=== PATIENT | female | born 1945 | race Caucasian/White ===

== ENCOUNTER 2024-10-13 11:47 | Inpatient (IN) | payer MEDICARE, BC ==
[~2024-10-13] VITALS: Ht 160 cm; Wt 64.1 kg
[2024-10-13 12:00] VITALS: TEMP 98; O2SAT 99
[2024-10-13 12:32] LABS: ABG BASE EXCESS 0.9 mmol/L (-2.0-3.0); ABG OXYGEN SATURATION 98.3 % (94.0-98.0); ABG PCO2 46.2 mmHg (32.0-45.0); ABG PH 7.376 (7.350-7.450); ABG PO2 149.6 mmHg (83.0-108.0); ABG TOTAL HEMOGLOBIN 11.2 G/dL (12.0-16.0); COHb 0.3 % (0.5-1.5); MetHb 0.3 % (0.0-1.5); O2Hb 97.7 % (94.0-97.0); SITE, ABG LEFT RADIAL
[2024-10-13 12:43] LABS: BASOPHILS % (AUTO) 0.2 % (0.0-2.0); EOSINOPHILS % (AUTO) 0.2 % (0.0-6.0); HEMATOCRIT 33 % (33-45); HEMOGLOBIN 10.4 g/dL (11.5-14.8); LYMPHOCYTES # (AUTO) 2.2 K/uL (0.8-4.8); LYMPHOCYTES % (AUTO) 24.9 % (20.0-44.0); MEAN CORPUSCULAR HEMOGLOBIN 28 PG (26.0-33.0); MEAN CORPUSCULAR HGB CONC 31 g/dl (31.0-36.0); MEAN CORPUSCULAR VOLUME 90 fL (82-100); MONOCYTES # (AUTO) 0.1 K/uL (0.1-1.30); MONOCYTES % (AUTO) 1.5 % (2.0-12.0); NEUTROPHILS # (AUTO) 6.5 K/uL (1.8-8.9); NEUTROPHILS % (AUTO) 73.2 % (43.0-81.0); PLATELET COUNT (AUTO) 268 K/uL (150-450); RED BLOOD CELL COUNT(AUTO) 3.69 MIL/uL (4.0-5.2); WHITE BLOOD COUNT (AUTO) 8.9 K/uL (4.3-11.0)
[2024-10-13 12:44] LABS: CALCIUM, SERUM 8.7 mg/dL (8.5-10.1); CARBON DIOXIDE 35 mmol/L (21-32); CHLORIDE 97 mmol/L (98-107); CREATININE 1.1 mg/dL (0.6-1.3); GLUCOSE 171 mg/dL (74-106); POTASSIUM 3.9 mmol/L (3.5-5.1); SODIUM SERUM 135 mmol/L (136-145); UREA NITROGEN, BLOOD 20 mg/dL (7-18)
[2024-10-13] MEDS: PIPERACILLIN /TAZOBACTAM 3.375 G in IV D5W 50 ML IV ONE (12:57)
[2024-10-13] MEDS: VANCOMYCIN 1 GM in IV D5W 250 ML IV ONE (13:01)
[2024-10-13 13:05] LABS: LACTIC ACID 6.9 mmol/L (0.4-2.0)
[2024-10-13] MEDS ORDERED: APIX5TAB PO (13:10)
[2024-10-13] MEDS ORDERED: CHOL100043 PO (13:10)
[2024-10-13] MEDS ORDERED: ROSU10TA2 PO (13:10)
[2024-10-13] MEDS ORDERED: PANT40TA2 PO (13:10)
[2024-10-13] MEDS ORDERED: METO25TA4 PO (13:10)
[2024-10-13] MEDS ORDERED: DOCU100T2 PO (13:10)
[2024-10-13] MEDS ORDERED: CYAN500T64 PO (13:10)
[2024-10-13] MEDS ORDERED: Z GUARD REMEDY 4 OZ OINT TP PRN (13:30)
[2024-10-13] MEDS ORDERED: ACETAMINOPHEN 325 MG TABLET PO PRN (13:30)
[2024-10-13] MEDS ORDERED: MAGNESIUM HYDROXIDE 30 ML UDC PO PRN (13:30)
[2024-10-13] MEDS ORDERED: ENOXAPARIN SODIUM 40 MG/0.4 ML DISP.SYRIN SQ SCH (13:30)
[2024-10-13] MEDS ORDERED: MAG HYDROX/AL HYDROX/SIMETH 30 ML UDC PO PRN (13:30)
[2024-10-13] MEDS ORDERED: METOPROLOL SUCCINATE 25 MG TAB.SR.24H PO PRN (13:30)
[2024-10-13] MEDS ORDERED: ONDANSETRON HCL/PF 4 MG/2 ML VIAL IVP PRN (13:30)
[2024-10-13] MEDS: PANTOPRAZOLE 40 MG VIAL IV SCH (15:06)
[2024-10-13] MEDS: FUROSEMIDE 40 MG/4 ML VIAL IV SCH (15:06)
[2024-10-13] MEDS ORDERED: IV NS 0.9% 250 ML IV PRN (15:30)
[2024-10-13 16:00] VITALS: BP 83/57; O2SAT 78
[2024-10-13 16:51] VITALS: BP 83/57
[2024-10-13 17:00] VITALS: BP 85/62; O2SAT 87
[2024-10-13] MEDS ORDERED: APIXABAN 5 MG TABLET PO SCH ×2 (17:00)
[2024-10-13 17:02] VITALS: BP 85/62
[2024-10-13] MEDS ORDERED: PHENYLEPHRINE 100 MG in IV NS 0.9% 240 ML IV PRN (17:30)
[2024-10-13] MEDS ORDERED: DEXTROSE 50%-WATER 50 ML DISP.SYRIN ONE (17:49)
[2024-10-13] MEDS ORDERED: PIPERACILLIN /TAZOBACTAM 3.375 G in IV D5W 50 ML IV SCH (18:00)
[2024-10-13 18:02] LABS: BILIRUBIN,DIRECT 0.2 mg/dL (0.0-0.2); BILIRUBIN,TOTAL 0.7 mg/dL (0.2-1.0)
[2024-10-13] MEDS ORDERED: EPINEPHRINE (1:10,000) SYRINGE 1 MG/10 ML DISP.SYRIN IVP ONE (18:05)
[2024-10-13] MEDS ORDERED: SODIUM BICARBONATE SYR 50 MEQ/50 ML DISP.SYRIN IV ONE (18:06)
[2024-10-13 18:27] LABS: LACTIC ACID REFLEX 15.1 mmol/L (0.4-1.9)
[2024-10-13] MEDS ORDERED: DOXYCYCLINE 100 MG in IV D5W 100 ML IV SCH (21:00)
[2024-10-13] MEDS ORDERED: ATORVASTATIN 10 MG TABLET PO SCH (22:00)
[2024-10-14] MEDS ORDERED: VANCOMYCIN 1 GM in IV D5W 250ml IV SCH (09:00)
[2024-10-14] MEDS ORDERED: CYANOCOBALAMIN 500 MCG TABLET PO SCH (09:00)
[2024-10-14] MEDS ORDERED: DOCUSATE SODIUM LIQ 100 MG/10 ML UDC NG SCH (09:00)
[2024-10-14] MEDS ORDERED: CHOLECALCIFEROL 1,000 UNIT TABLET (VIT D3) PO SCH (09:00)
== END 2024-10-13 19:42 | DRG 871 ==
LOC: ER 11:50 → ICU 14:40
PROVIDERS: ADMIT Nurse Practitioner Acute Care; ATTEND Nurse Practitioner Acute Care
PROC: 0BH18EZ Insertion of Endotracheal Airway into Trachea, Via Natural or Artificial Opening Endoscopic (ICD-10-PCS; principal; 2024-10-13)
PROC: 5A12012 Performance of Cardiac Output, Single, Manual (ICD-10-PCS; 2024-10-13)
DX: A41.9 Sepsis, unspecified organism (principal); J69.0 Pneumonitis due to inhalation of food and vomit; J96.01 Acute respiratory failure with hypoxia; J96.02 Acute respiratory failure with hypercapnia; R65.21 Severe sepsis with septic shock; E87.1 Hypo-osmolality and hyponatremia; E87.20 Acidosis, unspecified; D68.69 Other thrombophilia; J98.11 Atelectasis; I50.30 Unspecified diastolic (congestive) heart failure; E78.5 Hyperlipidemia, unspecified; I48.0 Paroxysmal atrial fibrillation; K21.9 Gastro-esophageal reflux disease without esophagitis; R13.10 Dysphagia, unspecified; Z79.01 Long term (current) use of anticoagulants; Z87.891 Personal history of nicotine dependence; Z99.81 Dependence on supplemental oxygen; Z74.09 Other reduced mobility; Z20.822 Contact with and (suspected) exposure to COVID-19; I11.0 Hypertensive heart disease with heart failure; Z98.890 Other specified postprocedural states
CPT/HCPCS: 36415; 36600; 71045-TC; 80048-TC; 82247-TC; 82248-TC; 82803-TC; 82962-TC; 83605-TC; 83880; 84484-TC; 85025-TC; 87040-TC; 92950-TC; 99082-TC; A4223; G0378; J0171; J1940; J2470; J2543; J3370; J3490; J7050; J7060